=== PATIENT | male | born 1990 | race Hispanic/Latino ===

== ENCOUNTER 2016-10-15 13:22 | Emergency (ER) | payer SELFPAY ==
[~2016-10-15] VITALS: Ht 167.6 cm; Wt 72.7 kg
[~2016-10-15 13:22] MED LIST: NO HOME MEDS; STROMECTOL3 MG PO
[2016-10-15] MEDS ORDERED: NAPROXEN DR500 MG PO (17:47)
[2016-10-15 17:49] VITALS: BP 143/93
== END 2016-10-15 18:03 | disposition home or self-care (01) | DRG 605 ==
LOC: ED 13:22
DX: S20.211A Contusion of right front wall of thorax, initial encounter (principal); S22.31XA Fracture of one rib, right side, initial encounter for closed fracture; W22.09XA Striking against other stationary object, initial encounter; Y92.008 Other place in unspecified non-institutional (private) residence as the place of occurrence of the external cause; R50.9 Fever, unspecified